=== PATIENT | male | born 1970 | race Caucasian/White ===

== ENCOUNTER 2018-11-05 00:51 | Emergency (ER) | payer SELFPAY ==
[~2018-11-05] VITALS: Ht 188 cm; Wt 90.7 kg
--- NOTE | 2018-11-05 01:20 | NUR ---
Dr. Casas at bedside for MSE.
[2018-11-05] MEDS ORDERED: ONDANSETRON 4 MG/2 ML VIAL ONE (01:27)
[2018-11-05] MEDS ORDERED: HYDROMORPHONE 2 MG/1 ML DISP.SYRIN ONE (01:27)
[2018-11-05] MEDS ORDERED: HYDROMORPHONE 1 MG/1 ML DISP.SYRIN IM ONE (01:30)
[2018-11-05] MEDS ORDERED: ONDANSETRON ODT 4 MG TAB.RAPDIS SL ONE (01:30)
--- NOTE | 2018-11-05 01:36 | NUR ---
Pt out of ER for CT.
--- NOTE | 2018-11-05 01:53 | NUR ---
Pt back to ER from CT.
[2018-11-05] MEDS ORDERED: IV NORMAL SALINE 500 ML BAG IV ONE (02:00)
--- NOTE | 2018-11-05 02:08 | NUR ---
Called [facility]. Spoke with Sergey Charge Nurse. He will call neurology surgery. Waiting for call back.
--- NOTE | 2018-11-05 02:13 | NUR ---
Called [facility]. Unable to accept patient at this time.
--- NOTE | 2018-11-05 02:22 | NUR ---
Dr Casas paged Dr Libby fowler surgeon. Waiting for call back.
[2018-11-05 02:23] LABS: BASOPHILS % (AUTO) 0.4 % (0.0-2.0); EOSINOPHILS # (AUTO) 0.1 K/uL (0.0-0.7); EOSINOPHILS % (AUTO) 0.7 % (0.0-7.0); HEMATOCRIT 37.9 % (36.7-47.1); HEMOGLOBIN 13.4 g/dL (12.5-16.3); LYMPHOCYTES # (AUTO) 1.7 K/uL (20.0-40.0); LYMPHOCYTES % (AUTO) 15.6 % (20.5-51.5); MEAN CORPUSCULAR HEMOGLOBIN 31.9 uug (23.8-33.4); MEAN CORPUSCULAR HGB CONC 35 g/dL (32.5-36.3); MONOCYTES # (AUTO) 1.1 K/uL (2.0-10.0); MONOCYTES % (AUTO) 10.3 % (0.0-11.0); PLATELET COUNT (AUTO) 223 K/uL (152-348); RED BLOOD CELL COUNT(AUTO) 4.21 MIL/uL (4.06-5.63); WHITE BLOOD COUNT (AUTO) 10.9 K/uL (3.6-10.2)
[2018-11-05 02:26] LABS: CREATININE 0.8 mg/dL (0.6-1.3); POTASSIUM 3.4 mmol/L (3.5-5.1)
[2018-11-05 02:31] LABS: BILIRUBIN,DIRECT 0.2 mg/dL (0.0-0.2); BILIRUBIN,TOTAL 0.7 mg/dL (0.2-1.0); TOTAL PROTEIN, SERUM 6.4 g/dL (6.4-8.2)
[2018-11-05] MEDS ORDERED: CEFAZOLIN 1 G VIAL ONE ×2 (02:39→02:40)
--- NOTE | 2018-11-05 02:39 | NUR ---
Called [facility] spoke to Yaima. 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 Faxed Facesheet/summary report to as requested.
[2018-11-05] MEDS ORDERED: CEFAZOLIN 1 G in IV DEXTROSE 5% 50 ML IV ONE (02:45)
--- NOTE | 2018-11-05 03:57 | NUR ---
Called [facility] transfer center, spoke with Kim. Faxed info to .
[2018-11-05] MEDS ORDERED: MANNITOL 25% 12.5 G/50 ML VIAL IV ONE ×2 (04:09→04:15)
--- NOTE | 2018-11-05 04:17 | NUR ---
Dr. Casas speaking with Dr. Gordon of [facility]. Dr. Gordon accepted the patient. [facility] transfer center will follow up with transfer information.
--- NOTE | 2018-11-05 04:27 | NUR ---
Patient accepted by [facility]. [address] [place] [address] to 6 ICU Room 6441. Report given to Vincent SIMMONS Neuro Charge. Accepting MD is Reid Macedo. Neurosurgeon Dr. Gordon.
--- NOTE | 2018-11-05 04:33 | NUR ---
Called Pharmacy due to crystals in Mannitol vials not dissolving, per pharmacist, Mannitol was improperly stored and should be stored in an incubator. Mannitol not given.
--- NOTE | 2018-11-05 04:42 | NUR ---
Rescue arrived to ER to transfer patient to [facility]. Patient out of ER via gurney. Report and documentation given to EMS.
== END 2018-11-05 04:53 | disposition short-term general hospital (02) ==
LOC: ER 01:00
DX: S32.19XA Other fracture of sacrum, initial encounter for closed fracture (principal); S32.2XXA Fracture of coccyx, initial encounter for closed fracture; G43.909 Migraine, unspecified, not intractable, without status migrainosus; W19.XXXA Unspecified fall, initial encounter; Y93.89 Activity, other specified; Y92.89 Other specified places as the place of occurrence of the external cause; Y99.8 Other external cause status
CPT/HCPCS: 36415; 70450; 71045; 72220; 80048; 80076; 83690; 84484; 85025; 85730; 93005; 96372; 96374; 99285; J0690; J1170; J2405; J7060; 70030-TC; A4663; J2150; J7040